=== PATIENT | male | born 1975 | race Caucasian/White ===

== ENCOUNTER 2020-02-08 13:36 | Outpatient (CLI) | payer BC, SELFPAY ==
--- NOTE | ~2020-02-08 | XR_ITS ---
XR finger 3rd RT min 2V DATE: 02/08/2020 14:04 INDICATION: Laceration posterior aspect of proximal interphalangeal joint 2 weeks ago. Pain, numbness , swelling TECHNIQUE: 4 views COMPARISON: None FINDINGS: No fracture, dislocation, periosteal reaction or bone destruction, radiopaque soft tissue f oreign body or subcutaneous emphysema. IMPRESSION: No significant bony abnormality Reviewed, dictated and finalized at location A.
== END 2020-02-08 13:37 | disposition home or self-care (01) ==
PROVIDERS: PCP Family Medicine; Visit Provider Family Medicine
DX: M79.644 Pain in right finger(s) (principal)
CPT/HCPCS: 73140

== ENCOUNTER 2020-02-23 18:13 | Outpatient (CLI) | payer BC, SELFPAY ==
--- NOTE | ~2020-02-23 | XR_ITS ---
XR finger 3rd RT min 2V DATE: 02/23/2020 18:31 INDICATION: Dropped a 70 pound weight on third digit at proximal interphalangeal joint. Pain. TECHNIQUE: 4 views COMPARISON: None FINDINGS: No fracture or dislocation, periosteal reaction or bone destruction, radiopaque soft tissue foreign body or subcutaneous emphysema. IMPRESSION: Negative Reviewed, dictated and finalized at location A. IMPRESSION: Negative
== END 2020-02-23 18:14 | disposition home or self-care (01) ==
LOC: ANHIMG 18:16
PROVIDERS: PCP Family Medicine; Visit Provider Specialist
DX: M79.89 Other specified soft tissue disorders (principal)
CPT/HCPCS: 73140